=== PATIENT | female | born 1990 | race Two or more races ===

== ENCOUNTER 2018-03-18 21:39 | Emergency (ER) | payer MEDICAID, OTHER ==
[2018-03-18] MEDS ORDERED: PENICILLIN V POTASSIUM 500 MG TABLET PO ONE (22:30)
[2018-03-18] MEDS ORDERED: IBUPROFEN 800 MG TABLET PO ONE (22:30)
--- NOTE | 2018-03-18 22:52 | ER Document Report ---
HPI - HPI Patient complains to provider of: sore throat, ear pain Time Seen by Provider: 03/18/18 22:22 Onset: Other - monday night Quality of pain: Achy, Other - sore, like swallowing glass Severity: Severe Pain Level: 4 Context: Patient presents emergency department with complaints of sore throat bilateral ear pain headache since Monday night. Reports she felt like he had a fever but never took her temperature. Denies vomiting but reports she is nauseated. Denies diarrhea. Denies exposure to strep. She reports she took Motrin this morning but it really did not help her pain. Patient is visiting from [place]. Associated Symptoms: Headache, Sore throat Exacerbated by: Food Relieved by: Denies Similar symptoms previously: No Recently seen / treated by doctor: No - EENT EENT: REPORTS: Sore Throat, Ear Pain - NEURO Neurology: REPORTS: Headache Past Medical History - General Information source: Patient Last Menstrual Period: feb. - Social History Smoking Status: Current Every Day Smoker Cigarette use (# per day): Yes Chew tobacco use (# tins/day): No Frequency of alcohol use: Rare Drug Abuse: Marijuana Lives with: Family - visiting from [place] Family History: Reviewed & Not Pertinent Patient has suicidal ideation: No Patient has homicidal ideation: No Pulmonary Medical History: Reports: Hx Asthma Renal/ Medical History: Denies: Hx Peritoneal Dialysis Surgical Hx: Negative Vertical Provider Document - CONSTITUTIONAL Agree With Documented VS: Yes Exam Limitations: No Limitations General Appearance: WD/WN, No Apparent Distress - INFECTION CONTROL TRAVEL OUTSIDE OF THE [place] IN LAST 30 DAYS: No - HEENT HEENT: Atraumatic, Normocephalic, Pharyngeal Tenderness, Pharyngeal Erythema - tonsillar hypertrophy, opens mouth wide, clear voice, no trismus, Tympanic Membrane Red - right TM erythema, Tympanic Membrane Bulging - right. negative: Conjuctival Injection, Pharyngeal Exudate - NECK Neck: Normal Inspection, Supple. negative: Lymphadenopathy-Left, Lymphadenopathy-Right - RESPIRATORY Respiratory: Breath Sounds Normal, No Respiratory Distress - CARDIOVASCULAR Cardiovascular: Tachycardia - GI/ABDOMEN Gastrointestinal: Abdomen Soft, Abdomen Non-Tender - MUSCULOSKELETAL/EXTREMETIES Musculoskeletal/Extremeties: BETTIE FROM - NEURO Level of Consciousness: Awake, Alert, Appropriate Motor/Sensory: No Motor Deficit - DERM Integumentary: Warm, Dry, No Rash Course - Re-evaluation Re-evalutation: 03/18/18 22:56 Patient instructed on plan of care to include strep test, Motrin p.o. fluids. She verbalized understanding 03/18/18 23:27 Patient instructed on positive strep. Patient instructed on steroid penicillin VK care of strep throat. Patient verbalized understanding to all instructions. Reports she feels better since she had the Motrin. Speaks in a clear voice opens her mouth wide no airway concerns Dictation of this chart was performed using voice recognition software; therefore, there may be some unintended grammatical errors. - Vital Signs Vital signs: Temp Pulse Resp BP Pulse Ox 98.7 F 118 H 20 123/53 L 99 03/18/18 22:04 03/18/18 22:04 03/18/18 22:04 03/18/18 22:04 03/18/18 22:04 Discharge - Discharge Clinical Impression: Sore throat, Strep throat Right otitis media Qualifiers: Otitis media type: unspecified Qualified Code(s): H66.91 - Otitis media, unspecified, right ear Condition: Stable Disposition: HOME, SELF-CARE Instructions: Oral Narcotic Medication ([facility]), Otitis Media ([facility]), Penicillin V K ([facility]), Sore Throat ([facility]), Steroid Medication Injection, Strep Throat ([facility]) Additional Instructions: *You have been evaluated for ear pain, sore throat, STREP THROAT, otitis media *Take medication as prescribed *Warm salt water gargles and throat lozenges for comfort *Change toothbrush after two days of antibiotics *Do not let anyone drink/eat after you *Good hand washing *Follow-up with a primary care provider within one week for a recheck *Return to ED for worsening condition change, needs, difficulty breathing, unable to swallow Prescriptions: Penicillin V Potassium [Penicillin Vk 500 mg Tablet] 500 mg PO BID #20 tablet Forms: Elevated Blood Pressure, Smoking Cessation Education
[2018-03-18] MEDS ORDERED: HYDROCODONE/ACETAMINOPHEN 5-325 MG (6 TAB/ER DISP) PO PRN (23:23)
[2018-03-18] MEDS ORDERED: DEXAMETHASONE SOD PHOS INJ 10 MG/1 ML VIAL IM ONE (23:23)
[2018-03-19 02:52] VITALS: BP 123/66
== END 2018-03-18 23:45 | disposition home or self-care (01) ==
LOC: ER 21:39
DX: J02.0 Streptococcal pharyngitis (principal); H66.91 Otitis media, unspecified, right ear; H92.03 Otalgia, bilateral; R51 Headache; R11.0 Nausea; F17.210 Nicotine dependence, cigarettes, uncomplicated; F12.10 Cannabis abuse, uncomplicated; J45.909 Unspecified asthma, uncomplicated
CPT/HCPCS: 99283; 96372; 87880; J1100